=== PATIENT | male | born 1995 | race Caucasian/White ===

== ENCOUNTER 2021-09-13 08:48 | Emergency (ER) | payer BC ==
[~2021-09-13] VITALS: Ht 180.3 cm; Wt 113.4 kg
[2021-09-13] MEDS ORDERED: POLYMYXIN B/TMP10 ML (10:12)
[2021-09-13] MEDS ORDERED: CIPROFLOXIN HC2.5 M1 OPHTHALMIC (10:33)
[2021-09-13 10:39] VITALS: BP 148/87
== END 2021-09-13 10:40 | disposition home or self-care (01) ==
LOC: M.ERS 08:48
DX: H10.89 Other conjunctivitis (principal); Z88.0 Allergy status to penicillin; Z79.899 Other long term (current) drug therapy